=== PATIENT | male | born 1990 | race Caucasian/White ===

== ENCOUNTER 2020-03-27 12:15 | Emergency (ER) | payer OTHER ==
[~2020-03-27] VITALS: Ht 181.6 cm; Wt 77.3 kg
[2020-03-27] MEDS ORDERED: HYDROmorphone 2 MG/ML VIAL IVP ONE ×2 (12:30→14:00)
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
[2020-03-27] MEDS ORDERED: HYDR-3164 PO (14:33)
[2020-03-27] MEDS ORDERED: IV NORMAL SALINE 1000ML BAG 1,000 ML IV ONE (15:15)
[2020-03-27 15:27] VITALS: BP 142/71
== END 2020-03-27 16:10 | disposition home or self-care (01) ==
LOC: ER 12:15 → EEVIPCON 12:15 → ER 16:10
DX: S42.402A Unspecified fracture of lower end of left humerus, initial encounter for closed fracture (principal); Z87.891 Personal history of nicotine dependence; Y08.89XA Assault by other specified means, initial encounter; Y93.89 Activity, other specified; Y92.89 Other specified places as the place of occurrence of the external cause; Y99.9 Unspecified external cause status
CPT/HCPCS: 29105; 73060; 73070; 73090; 96361; 96374; 96376; 99285; J1170; J7030; A4565